=== PATIENT | female | born 2000 | race Two or more races ===

== ENCOUNTER 2024-08-01 08:35 | Outpatient (RCR) | payer MEDICAID, SELFPAY ==
--- NOTE | 2024-07-04 08:55 | XR_ITS ---
EXAMINATION: US OB biophysical profile ORDERING PROVIDER: Shantel Lopez CNM HISTORY: BIWEEKLY NST WEEKLY NST/BPP; CHOLESTASIS TECHNIQUE: Multiple transabdominal sonographic images were obtained by histotechnologist supervisor and submitted for interpretation. COMPARISON: None. FINDINGS: FETUS: See. PRESENTATION: Cephalic. HEART MOTION: 145 beats/min. AMNIOTIC FLUID INDEX: 11.4 cm BREATHING MOVEMENT: 2 . GROSS BODY MOVEMENT: 2 . TONE: 2 . QUALITATIVE AMNIOTIC FLUID VOLUME: 2 TOTAL BIOPHYSICAL PROFILE: 8 of 8 . IMPRESSION: Single live intrauterine gestation with biophysical profile 8 of 8.
[2024-07-04 09:58] VITALS: BP 119/72; PULSE 95; RESP 16; TEMP 36.8
[2024-07-08 09:35] VITALS: BP 132/69; PULSE 114; RESP 16; TEMP 36.7
--- NOTE | 2024-07-11 08:40 | XR_ITS ---
Examination: Biophysical profile, ultrasound Date and time of exam: July 11, 2024 0852 hours INDICATIONS: Diagnosis cholestasis of Technique: Multiple transabdominal sonographic images of the pelvis abdomen obtained. Attention is directed to the breathing movement, gross body movement, amniotic fluid volume and tone. Findings: Amniotic fluid index 13.0 cm Total biophysical profile is 8 of 8. breathing movement is 2. Gross body movement is 2. tone is 2. Qualitative amniotic fluid volume is 2 Impression: Biophysical profile is 8 of 8.
[2024-07-11 09:28] VITALS: BP 121/68; PULSE 99; RESP 16; TEMP 36.8
[2024-07-15 09:06] VITALS: BP 122/67; PULSE 96; RESP 16; TEMP 36.7
--- NOTE | 2024-07-18 08:49 | XR_ITS ---
Examination: Biophysical profile, ultrasound Date and time of exam: July 18, 2024 0858 hours INDICATIONS: Diagnosis cholestasis of Technique: Multiple transabdominal sonographic images of the pelvis abdomen obtained. Attention is directed to the breathing movement, gross body movement, amniotic fluid volume and tone. Findings: Amniotic fluid index 5.1 cm Total biophysical profile is 8 of 8. breathing movement is 2. Gross body movement is 2. tone is 2. Qualitative amniotic fluid volume is 2 Impression: Biophysical profile is 8 of 8.
[2024-07-18 09:14] VITALS: BP 128/68; PULSE 111; RESP 16; TEMP 36.7
[2024-07-22 10:06] VITALS: BP 125/82; PULSE 104; RESP 16; TEMP 36.7
--- NOTE | 2024-08-01 08:45 | XR_ITS ---
Examination: Biophysical profile, ultrasound Date and time of exam: August 01, 2024 0854 hrs. Indications: Diagnosis cholestasis of Technique: Multiple transabdominal sonographic images of the pelvis abdomen obtained. Attention is directed to the breathing movement, gross body movement, amniotic fluid volume and tone. Findings: Amniotic fluid index 5.3 cm Total biophysical profile is 8 of 8. breathing movement is 2. Gross body movement is 2. tone is 2. Qualitative amniotic fluid volume is 2 Impression: Biophysical profile is 8 of 8.
[2024-08-01 09:28] VITALS: BP 137/69; PULSE 101; RESP 16; TEMP 36.7
[2024-08-01 10:32] LABS: Basophils % (Auto) 0 % (0-2.5); Eosinophils # (Auto) 0.1 Thou/mm3 (0.0-0.5); Eosinophils % (Auto) 1 % (0-10); Hematocrit 35.2 % (36.0-46.0); Immature Granulocytes % (Auto) 1 % (0-0); Immature Granulocytes Auto 0.07 Thou/mm3 (0.00-0.00); Lymphocytes # (Auto) 2.3 Thou/mm3 (1.0-4.8); Lymphocytes % (Auto) 21 % (10-50); Mean Corpuscular HGB Conc 34.1 g/dl (31.0-37.0); Mean Corpuscular Hemoglobin 29.4 pg (25.0-35.0); Mean Corpuscular Volume 86 fL (80-100); Monocytes # (Auto) 0.6 Thou/mm3 (0.0-0.8); Monocytes % (Auto) 5 % (0-12); Neutrophils # (Auto) 7.9 Thou/mm3 (1.8-7.7); Neutrophils % (Auto) 72 % (37-80); Nucleated Red Blood Cell % 0 /100 WBC (0); Platelet Count 351 Thou/mm3 (140-440); RDW Standard Deviation 39.7 fL (36.4-46.3); Red Blood Count 4.08 Miln/mm3 (4.00-5.20)
[2024-08-01 10:33] LABS: Collection Type, Urine Clean Catch
[2024-08-01 10:50] LABS: Bacteria,Urine Rare; Bilirubin,Urine Negative (Negative); Blood,Urine Negative (Negative); Clarity,Urine Clear (Clear/Hazy); Color,Urine Yellow (Lt Yel-Yel); Glucose, Urine Negative (Negative); Ketones,Urine Negative (Negative); Leukocyte Esterase,Urine Positive (Negative); Nitrite,Urine Negative (Negative); Protein,Urine Trace (Neg - Trace); RBC,Urine 2 /hpf (0-3); Specific Gravity,Urine 1.033 (1.001-1.035); Squamous Epithelial Cell,Urine 4 /hpf (0-5); Urobilinogen,Urine Negative mg/dL (0.0-1.0); WBC,Urine 6 /hpf (0-5)
[2024-08-01 10:51] LABS: Alanine Aminotransferase 59 U/L (10-49); Albumin, Serum 3.8 gm/dL (3.5-5.0); Albumin/Globulin Ratio 1.6 (1.2-2.2); Alkaline Phosphatase 136 U/L (46-116); Anion Gap 8 (7-16); Aspartate Amino Transferase 27 U/L (0-34); BUN/Creatinine Ratio 14 Ratio (12-20); Bilirubin,Total 0.4 mg/dL (0.3-1.2); Blood Urea Nitrogen 10 mg/dL (9-23); Calcium 9.4 mg/dL (8.3-10.6); Calcium (Corrected) 9.6 mg/dL (8.5-10.1); Chloride 107 mMol/L (98-107); Creatinine (Component) 0.7 mg/dL (0.6-1.3); Globulin 2.4 gm/dL (2.3-3.5); Glucose 116 mg/dL (74-106); LDH (Lactate Dehydrogenase) 163 U/L (120-246); Osmolality,Calculated 279 (275-295); Potassium 4.4 mMol/L (3.4-5.1); Sodium 140 mMol/L (136-145); Total Protein 6.2 gm/dL (5.7-8.2); eGFR > 60 See Note
[2024-08-01 10:54] LABS: Fibrinogen 503 mg/dL (175-375); Partial Thromboplastin Time 26.2 Seconds (22.0-36.0); Prothrombin Time 10.9 Seconds (9.0-12.2)
== END 2024-08-01 23:59 | disposition home or self-care (01) ==
LOC: S4S1 08:35
PROVIDERS: Referring Provider Nurse Practitioner Women's Health; Visit Provider Nurse Practitioner Women's Health
DX: O26.643 Intrahepatic cholestasis of pregnancy, third trimester (principal); K83.1 Obstruction of bile duct; Z3A.36 36 weeks gestation of pregnancy
CPT/HCPCS: 36415; 59025; 76819; 80053; 81001; 83615; 84550; 85025; 85384; 85610; 85730

== ENCOUNTER 2024-08-03 09:38 | Observation (INO) | payer MEDICAID, SELFPAY ==
[2024-08-03] VITALS (8 sets, daily range): BP systolic 104–117; BP diastolic 57–59; PULSE 99–114; RESP 17–97; TEMP 36.6; O2SAT 96–97; BMI 41.4
== END 2024-08-03 10:17 | disposition home or self-care (01) ==
PROVIDERS: Admitting Provider Obstetrics & Gynecology; PCP Family Medicine; Visit Provider Obstetrics & Gynecology
DX: Z34.83 Encounter for supervision of other normal pregnancy, third trimester (principal); Z3A.36 36 weeks gestation of pregnancy
CPT/HCPCS: 59025; 59899

== ENCOUNTER 2024-08-08 02:48 | Inpatient (IN) | payer MEDICAID, SELFPAY ==
[2024-08-08] VITALS (230 sets, daily range): BP systolic 103–135; BP diastolic 57–86; PULSE 73–115; RESP 16–100; TEMP 36.6–37.1; O2SAT 74–100; BMI 43.9
--- NOTE | 2024-08-08 03:28 | XR_ITS ---
Examination: Complete OB ultrasound greater than 14 weeks Date and time of exam: August 08, 2024 0402 hrs. Indications: Unknown presentation and unknown weight Findings: Viable intrauterine single fetus with single amniotic sac presentation cephalic Cardiac motion 1:30 BPM Placenta anterior grade 2 Umbilical cord insertion seen Amniotic fluid index 4.9 cm Cervix 3.1 cm Ovaries obscured by bowel gas. Composite estimated gestational age based on BPD, head circumference, abdominal circumference, femur length is 38 weeks 5 days Estimated weight 3561.9 g. Survey of intracranial anatomy, spinal anatomy, abdominal anatomy, four-chamber heart performed with no abnormalities identified. Impression: Viable intrauterine gestation cephalic presentation Estimated weight 3561.9 g.
[2024-08-08] MEDS: RINGERS LACTATED 1000 ML 1,000 ML 100 ML IV ×3 (03:30→23:55)
[2024-08-08 04:14] LABS: Amphetamine/Metham Scrn,Ur OB Negative (Negative); Benzoylecgonine Screen, Ur OB Negative (Negative); Opiate Screen,Urine OB Negative (Negative); THC Screen,Urine OB Negative (Negative)
[2024-08-08 04:15] LABS: Basophils % (Auto) 0 % (0-2.5); Eosinophils # (Auto) 0.1 Thou/mm3 (0.0-0.5); Eosinophils % (Auto) 1 % (0-10); Hematocrit 35.1 % (36.0-46.0); Hemoglobin 12.2 g/dL (12.0-16.0); Immature Granulocytes % (Auto) 1 % (0-0); Immature Granulocytes Auto 0.11 Thou/mm3 (0.00-0.00); Lymphocytes # (Auto) 2.9 Thou/mm3 (1.0-4.8); Lymphocytes % (Auto) 19 % (10-50); Mean Corpuscular HGB Conc 34.8 g/dl (31.0-37.0); Mean Corpuscular Hemoglobin 29.3 pg (25.0-35.0); Mean Corpuscular Volume 84 fL (80-100); Monocytes # (Auto) 1.1 Thou/mm3 (0.0-0.8); Monocytes % (Auto) 7 % (0-12); Neutrophils # (Auto) 10.7 Thou/mm3 (1.8-7.7); Neutrophils % (Auto) 72 % (37-80); Nucleated Red Blood Cell % 0 /100 WBC (0); Platelet Count 368 Thou/mm3 (140-440); RDW Standard Deviation 38.8 fL (36.4-46.3); Red Blood Count 4.17 Miln/mm3 (4.00-5.20); White Blood Count 14.9 Thou/mm3 (3.6-11.0)
[2024-08-08 04:46] LABS: Syphilis Nonreactive (Nonreactive)
--- NOTE | 2024-08-08 07:52 | ESHP_ITS ---
Documentation for date of: 08/08/24 OB Labor/Induct. HPI History of Present Illness Chief complaint: 24 y/o 37w 1d presents for IOL due to Cholestasis : 2 Para: 0 Term pregnancies: 0 pregnancies: 0 Living children: 0 History of Abortions: Spontaneous and Elective: 0 History of Vaginal deliveries: 0 History of sections: No History of : No LUCI: 08/28/24 Gestational Age (weeks): 37 Gestational Age (days): 1 History of present illness: 24 y/o 37w 1d presents for IOL due to Cholestasis. Cervix is 1.5/70/-3 vertex, EFW 3600g. Pt's pregnacy has been complicated by morbid obesity with BMI of 40 and Cholestasis. Pt has been having biweekly NST/weekly BPP since 32 weeks. GBS is positive and rubella NI. History of Present Dating criteria: based on 1st trimester US only Adequate Care: Yes (As per patient) Ultrasounds: normal 1st trimester US and normal mid trimester US Obstetrical complications: other (Obesity and Cholestasis) Labs Maternal Blood Type: O Pos Labs: Positive: Group Beta Strep, Negative: RPR, Hepatitis B, Rubella Titre, HIV, Chlamydia and Gonorrhea and Unknown: Herpes Type 1, Herpes Type 2 and Covid-19 Review of Systems Review of Systems Systems Reviewed: All systems reviewed, normal except as documented Past Medical History Surgical History SURGICAL: Negative Section Meds Home Medications and Allergies Home Medications ?Medication ?Instructions ?Recorded ?Confirmed ?Type vits no.130-ferrous fum 1 tab PO QDAY PREGNAN CY 08/08/24 08/08/24 History 27 mg iron-folic acid 800 mcg tablet ( Vitamin) ursodiol 300 mg capsule 300 mg PO Q8H CHOLESTASIS 08/08/24 History Allergies Allergy/AdvReac Type Severity Reaction Status Date / Time acetaminophen Allergy Unknown Hives Verified 08/08/24 03:31 OB Exam Physical Exam Vital signs: Temp Pulse Resp BP Pulse Ox O2 Del Method 97.9 F 92 16 119/72 99 Room Air 08/08/24 07:18 08/08/24 07:25 08/08/24 07:18 08/08/24 07:25 08/08/24 07:50 08/08/24 05:36 Constitutional Constitutional: no acute distress Routine HEENT Exam Head: Present normocephalic and atraumatic Eye: Present EOMI, PERRL and normal accommodation ENT: Present mucous membranes moist Routine Neck Exam Neck: Present full ROM Routine Respiratory Exam Respiratory: Absent respiratory distress Routine Cardiovascular Exam Cardiovascular: Present RRR Routine Abdominal Exam Abdominal: Present soft and normoactive bowel sounds Routine Exam External: Present normal urethra appearance; Absent lesions Detailed Labor and Delivery Exam Dilation (cm): 1.5 Effacement (%): 70 Cervix position: posterior station: -3 Consistency: soft Presentation: Vertex Membranes: intact Baseline heart rate: 130 monitor accelerations: 15x15 monitor decelerations: None watermelon inspector variability: Moderate (11-25) Contraction frequency (min): 3-5 Contraction intensity: Moderate Routine Extremities Exam Extremities: Present full ROM Routine Back/Spine/Pelvis Exam Back/Spine: Present full ROM Routine Skin Exam Skin: Present intact, dry and warm Routine Neurological Exam Neurological: Present alert, oriented X3 and CN II-XII intact Routine Psychiatric Exam Psychiatric: Present normal affect and normal thought process OB Results Labs 08/08/24 03:15 Labs: Short CBC 08/08/24 Range/Units 03:15 WBC 14.9 H (3.6-11.0) Thou/mm3 Hgb 12.2 (12.0-16.0) g/dL Hct 35.1 L (36.0-46.0) % Plt Count 368 (140-440) Thou/mm3 OB Assessment & Plan Assessment and Plan (1) Encounter for induction of labor: Status: Acute (2) Cholestasis during in third trimester: Status: Acute (3) GBS carrier: Status: Acute (4) 37 weeks gestation of : Status: Acute (5) Rubella non-immune status, antepartum: Status: Acute Additional Plan Induction method: per misoprostol protocol Plan: induction, anticipate NVD, GBS prophylaxis tx and consult MD westn Additional Plan Comment: Routine Admit orders Continuous EFM Start Ampicillin now Consult anesthesia for an epidural MMR to be given in Dr. Benitez is updated
[2024-08-08] MEDS: Ampicillin Inj 2,000 MG in SODIUM CHLORIDE 0.9% (POP) 100 ML 200 MG IV (10:46)
[2024-08-08] MEDS: MISOPROSTOL 50 mCg TABLET PO ×4 (10:47→23:42)
--- NOTE | 2024-08-08 17:00 | PD.LDPN ---
Documentation for date of: 08/08/24 OB Labor Progress Note Pain Control Pain control: tolerating well Pelvic Exam Dilation (cm): 2 Effacement (%): 70 station: -3 Contractions Monitor mode: External Contraction frequency: 3-5 Contraction intensity: Moderate Status status: Category l Assessment and Plan Assessment: induction ongoing Plan OB labor note: continuous present management Comments: Pt has had 2 doses of cytotec will continue with all 4 doses Reassuring fetus Anticipate
[2024-08-08] MEDS: Ampicillin Inj 1,000 MG in SODIUM CHLORIDE 0.9% (Popper) 50 ML 50 MG IV ×2 (19:19→23:19)
[2024-08-09] VITALS (225 sets, daily range): BP systolic 99–157; BP diastolic 54–102; PULSE 74–181; RESP 16; TEMP 36.6–37.3; O2SAT 73–100
[2024-08-09] MEDS: fentaNYL CIT INJ 50 mCg/ML AMP 2ML 100 MCG IV ×3 (03:07→15:06)
[2024-08-09] MEDS: Ampicillin Inj 1,000 MG in SODIUM CHLORIDE 0.9% (Popper) 50 ML 50 MG IV ×3 (03:17→13:14)
[2024-08-09] MEDS: RINGERS LACTATED 1000 ML 1,000 ML 999 ML IV (06:21)
--- NOTE | 2024-08-09 07:06 | PD.LDPN ---
Documentation for date of: 08/09/24 OB Labor Progress Note Pain Control Pain control: narcotic analgesia and other (Requesting epidural) Pelvic Exam Dilation (cm): 4 Effacement (%): 90 station: +1 Amniotic membrane status: Ruptured (clear) Contractions Monitor mode: External Contraction frequency: 2-3 Contraction duration: 60-90 Contraction phase: Contraction Contraction intensity: Moderate Status status: Category l Assessment and Plan Assessment: induction ongoing Plan OB labor note: begin Pitocin augmentation Comments: Pt SROM overnight and is making progress, slow and study, but expected Pt to get an epidural Start pitoin per protocol if contractions space out Anticipate Dr. Benitez updated
[2024-08-09] MEDS: OXYTOCIN in NS 30 units 30 UNIT/500 ML BAG IV (08:49)
--- NOTE | 2024-08-09 13:19 | PD.LDPN ---
Documentation for date of: 08/09/24 OB Labor Progress Note Pain Control Pain control: epidural Pelvic Exam Dilation (cm): 10 Effacement (%): 100 station: +1 Amniotic membrane status: Ruptured (clear) Contractions Monitor mode: External Contraction frequency: 2-3 Contraction duration: 40-60 Contraction phase: Contraction Contraction intensity: Moderate Status status: Category l Assessment and Plan Assessment: other (2nd stage) Plan OB labor note: continuous present management Comments: Pitocin turned off RN pushing with pt CNM on the unit awaiting delivery
[2024-08-09] MEDS: TRANEXAMIC ACID 1,000 MG IVPB 1,000 MG/100 ML BAG 200 MG IV ×2 (15:07→15:20)
[2024-08-09] MEDS: OXYTOCIN INJ 10 UNIT/ML VIAL IM (15:07)
[2024-08-09] MEDS: OXYTOCIN in NS 20 units 20 UNIT/1,000 ML BAG 125 UNIT IV (15:33)
--- NOTE | 2024-08-09 15:45 | PD.LDDELS ---
Data (See) Data Hx Section: No Maternal Blood Type: O Pos Rubella Titre: Positive RPR: Non-reactive Labs: Positive: Group Beta Strep, Negative: RPR, Hepatitis B, HIV, Chlamydia and Gonorrhea and Unknown: Herpes Type 1 and Herpes Type 2 : 2 Para: 0 Term: 0 : 0 Livin : 1 Delivery Data (See) Labor Data Induction: Yes ROM Date: 08/09/24 ROM Time: 02:38 Rupture Type: SROM Amniotic Fluid: Clear Delivery Data EDC: 08/28/24 EDC calculated by:: ultrasound Labor Onset Stage 1 Date: 08/09/24 Labor Onset Stage 1 Time: 12:29 Labor Onset Stage 2 Date: 08/09/24 Labor Onset Stage 2 Time: 13:10 Delivery Date: 08/09/24 Delivery Time: 14:38 Gestational age (weeks): 37 Gestational age (days): 2 Placenta Delivery Date: 08/09/24 Placenta Delivery Time: 14:56 Delivered by: Shantel Lopez Delivery nurse: [facility] [employer] Attendant at delivery: No Support person(s) at delivery: FOB Other staff at delivery: Nursery Nurse Other staff at delivery: Nursery Nurse Other staff at delivery: Amalia Dhillon Other staff at delivery: Hanh Hernandez Delivery Method Delivery: Vaginal Delivery Type: Spontaneous Presentation: Vertex Position: OA Anesthesia Type Primary Anesthesia: Epidural Delivery Room Medications Intrapartum Medications: Antibiotics Other Intrapartum Medications: No Post Delivery Medications: Antibiotics Post Delivery Medications N/A: Yes Placenta Placenta Delivery: Spontaneous Placenta Cultures Obtained: No Placenta Sent for Examination: No Cord Sample: Cord Blood Obtained Episiotomy Episiotomy: None Lacerations #1: Perineal: 1st degree Perineal repair Sutures used for repair: 3.0 Vicryl (CT) EBL Estimated blood loss (ml): 800 Umbilical Cord Umbilical Vessels: 3 Nuchal Cord: None Body Cord: None Additional Procedures Pt pushed for about an 1.5 hours and had an of a viable male infant. Infant's anterior shoulder delivered with gentle downward traction, subsequent delivery of the posterior shoulder and the body without complications. placed on mother's abdomen. Vigorous cry upon delivery. Cord was clamped then cut by FOB. Cord blood obtained. 3-vessel cord noted. Placenta expelled spontaneously and intact. Pt sustained 1st deg perineal laceration, repaired using a 3.[address] Pt has significant about of bleeding . Pit IM given, TXA x2 given, methergine x1 given. IV pitocin x2 given. Manual removal of clots from the uterus with a vigorous fundal massage. After 800 EBL finally bleeding stopped. Sponge and needle count correct. Pt will be on Ancef 2g Q8 for 24 hours. Mother and baby both stable, skin to skin and bonding in LDR. Data (See) Data Infant Gender: Male Identification Band Number: [id number] Infant Weight Grams: 3670 1 Minute Total: 9 5 Minute Total: 9
[2024-08-09] MEDS: IBUPROFEN TAB 400 MG TABLET 800 MG PO (16:32)
[2024-08-09] MEDS: ceFAZolin/D5W 2 GM IV 2 GM/100 ML BAG IV (16:35)
[2024-08-09 20:43] LABS: Basophils # (Auto) 0.1 Thou/mm3 (0.0-0.2); Basophils % (Auto) 0 % (0-2.5); Eosinophils % (Auto) 0 % (0-10); Hematocrit 29.3 % (36.0-46.0); Hemoglobin 10.3 g/dL (12.0-16.0); Immature Granulocytes % (Auto) 1 % (0-0); Immature Granulocytes Auto 0.23 Thou/mm3 (0.00-0.00); Lymphocytes # (Auto) 2.4 Thou/mm3 (1.0-4.8); Lymphocytes % (Auto) 8 % (10-50); Mean Corpuscular HGB Conc 35.2 g/dl (31.0-37.0); Mean Corpuscular Hemoglobin 29.8 pg (25.0-35.0); Mean Corpuscular Volume 85 fL (80-100); Monocytes # (Auto) 1.6 Thou/mm3 (0.0-0.8); Monocytes % (Auto) 5 % (0-12); Neutrophils # (Auto) 24.7 Thou/mm3 (1.8-7.7); Neutrophils % (Auto) 86 % (37-80); Nucleated Red Blood Cell % 0 /100 WBC (0); Platelet Count 302 Thou/mm3 (140-440); RDW Standard Deviation 39.4 fL (36.4-46.3); Red Blood Count 3.46 Miln/mm3 (4.00-5.20); White Blood Count 28.9 Thou/mm3 (3.6-11.0)
[2024-08-09] MEDS: CLINDAMYCIN 900MG IVPB 900 MG in PRE-MIXED 1 BAG 50 MG IV (22:00)
[2024-08-10] MEDS: ceFAZolin/D5W 2 GM IV 2 GM/100 ML BAG IV ×3 (00:06→15:59)
[2024-08-10 00:11] VITALS: BP 104/65; PULSE 92; RESP 17; TEMP 36.7; O2SAT 97
[2024-08-10 01:59] LABS: Basophils % (Auto) 0 % (0-2.5); Eosinophils % (Auto) 0 % (0-10); Hematocrit 26.1 % (36.0-46.0); Hemoglobin 9.3 g/dL (12.0-16.0); Immature Granulocytes % (Auto) 1 % (0-0); Immature Granulocytes Auto 0.17 Thou/mm3 (0.00-0.00); Lymphocytes # (Auto) 3.3 Thou/mm3 (1.0-4.8); Lymphocytes % (Auto) 15 % (10-50); Mean Corpuscular HGB Conc 35.6 g/dl (31.0-37.0); Mean Corpuscular Hemoglobin 30.2 pg (25.0-35.0); Mean Corpuscular Volume 85 fL (80-100); Monocytes # (Auto) 1.6 Thou/mm3 (0.0-0.8); Monocytes % (Auto) 7 % (0-12); Neutrophils # (Auto) 17.5 Thou/mm3 (1.8-7.7); Neutrophils % (Auto) 77 % (37-80); Nucleated Red Blood Cell % 0 /100 WBC (0); Platelet Count 295 Thou/mm3 (140-440); Red Blood Count 3.08 Miln/mm3 (4.00-5.20); White Blood Count 22.6 Thou/mm3 (3.6-11.0)
[2024-08-10 05:06] VITALS: BP 103/68; PULSE 91; RESP 16; TEMP 36.6; O2SAT 97
[2024-08-10] MEDS: CLINDAMYCIN 900MG IVPB 900 MG in PRE-MIXED 1 BAG 50 MG IV ×3 (06:08→22:08)
[2024-08-10 07:35] VITALS: BP 104/68; PULSE 96; RESP 16; TEMP 36.9; O2SAT 96
[2024-08-10] MEDS: DOCUSATE SOD 100 MG CAPSULE PO (07:58)
--- NOTE | 2024-08-10 08:12 | PC.NURSE ---
verified with patient about allergies, she is able to take norco with no problem but with only tylenol she developes hives.
--- NOTE | 2024-08-10 08:26 | PD.LDPPPRG ---
Subjective Subjective Interval history: Patient denies any problem or complaint. She is voiding and ambulating and tolerating a regular diet and passing flatus.. She denies any excessive vaginal bleeding or dizziness or lightheadedness. She denies any chest pain palpitation shortness of breath or lower extremity pain. She is not having any abdominal or pelvic pain. Exam Vital Signs Temp Pulse Resp BP Pulse Ox O2 Del Method 98.4 F 96 16 104/68 96 Room Air 08/10/24 07:35 08/10/24 07:35 08/10/24 07:35 08/10/24 07:35 08/10/24 07:35 08/10/24 07:35 Routine Respiratory Exam Comments: Clear to auscultation bilaterally Routine Cardiovascular Exam Comments: Regular rate and rhythm Routine Abdominal Exam Comments: Fundus is firm and nontender Routine Extremities Exam Comments: Nontender or edema Objective Labs 08/10/24 00:42 Labs: Laboratory Results - last 24 hr 08/09/24 08/10/24 20:23 00:42 WBC 28.9 H D 22.6 H D RBC 3.46 L 3.08 L Hgb 10.3 L 9.3 L Hct 29.3 L 26.1 L MCV 85 85 MCH 29.8 30.2 MCHC 35.2 35.6 RDW Std Deviation 39.4 40.0 Plt Count 302 D 295 Neut % (Auto) 86 H 77 Lymph % (Auto) 8 L 15 [place] % (Auto) 5 7 Eos % (Auto) 0 0 Baso % (Auto) 0 0 Neut # (Auto) 24.7 H 17.5 H Lymph # (Auto) 2.4 3.3 [place] # (Auto) 1.6 H 1.6 H Eos # (Auto) 0.0 0.0 Baso # (Auto) 0.1 0.0 Immature Gran # (Auto) 0.23 H 0.17 H Absolute Nucleated RBC 0.00 0.00 Immature Gran % 1 H 1 H Nucleated RBC % 0 0 Assessment & Plan Problem List (1) Encounter for induction of labor: Status: Acute (2) Cholestasis during in third trimester: Status: Acute (3) GBS carrier: Status: Acute (4) 37 weeks gestation of : Status: Acute (5) Rubella non-immune status, antepartum: Status: Acute Assessment Comment Assessment comment: day #1 Status post spontaneous vaginal delivery complicated by uterine atony with hemorrhage : Responded to uterotonic's and now hemodynamically stable with hemoglobin stable at 9.3 Elevated white blood cell count presumptive chorioamnionitis with subsequent endometritis Will add gentamicin for gram-negative coverage Possible discharge home tomorrow Repeat CBC in a.m. Time Spent With Patient Time: Total time spent is greater than 50% in coordination of care (as documented) at patient's floor/unit and/or counseling patient:
--- NOTE | 2024-08-10 10:16 | PC.SS ---
BLIND CLEANER, Nayeli, met with patient [id number] to do initial assessment due to having a history of anxiety and late to care. COTTON ACREAGE MEASURER introduced herself, role in the agency, reason for visit, and discussed limits of confidentiality. Patient appeared alert and oriented to self, time, place, and situation. Patient appears stated age. Patient made good eye contact. Patient?s attitude appeared pleasant and cooperative. Patient?s behavior appeared ordinary. Patient?s mood appears ordinary. No signs of delusions or hallucinations. This is 24-year-old, , life-partnered female who presented to deliver her son, Zaheer. Patient confirmed her address and phone number. Patient lives in a house with her life-partner and 9-year-old stepdaughter, Elizabeth. Father of the baby, Vasquez Sparks ([phone]) is involved in the care. Patient is independent with all daily activities; she denies any DME use. Patient declined any history or current substance use. Patient declined any involvement with CWS. Patient declined any domestic violence at home. Patient denied any current mental health illness. Patient reported having a history of anxiety from daily life stressors. Patient denied receiving any outpatient MH services. Patient denied any HI, SI, previous suicide attempts or psychiatric admissions. Patient?s mother, Franchesca will remain at home with her to assist her. SW provided psychoeducation regarding baby blues and Post- Depression, as well as counseling groups at [facility]. SW provided community resources: Warm Line, community resources, and Crisis Line.
[2024-08-10 11:46] VITALS: BP 108/75; PULSE 98; RESP 17; TEMP 36.6; O2SAT 95
--- NOTE | 2024-08-10 13:56 | ESDS_ITS ---
DS: Providers Provider Date of admission: 08/08/24 02:48 Primary care physician: Physician No Primary/Family Admitting Provider: Rex Ramirez MD Attending Provider on Admission: Quirino Goodrich MD Consults: 08/09/24 15:33 Referral Routine Comment: Attending Provider on DC: Quirino Goodrich MD Discharging Provider: Quirino Goodrich MD DS: Diagnosis Discharge Diagnosis (1) Endometritis following delivery: Status: Acute (2) Chorioamnionitis: Status: Acute Problem List Completed Was Problem List Reviewed/Reconciled?: Yes Summary/Hosp Course Brief History: 24 y/o 37w 1d presents for IOL due to Cholestasis. Cervix is 1.5/70/-3 vertex, EFW 3600g. Pt's pregnacy has been complicated by morbid obesity with BMI of 40 and Cholestasis. Pt has been having biweekly NST/weekly BPP since 32 weeks. GBS is positive and rubella NI. Peripartum Data Delivery Method: Normal Vaginal Delivery complications: other (Endometritis) Time Spent with Patient Time attestation: Total time spent providing and/or coordinating discharge services: Exam Vital Signs Temp Pulse Resp BP Pulse Ox O2 Del Method 97.9 F 98 17 108/75 95 Room Air 08/10/24 11:46 08/10/24 11:46 08/10/24 11:46 08/10/24 11:46 08/10/24 11:46 08/10/24 11:46 Discharge Plan Plan Patient Disposition: HOME (Self Care) Patient condition on transfer: Stable Prescriptions/Referrals Prescriptions/Med Rec: New docusate sodium [Colace] 100 mg capsule 100 mg PO BID Qty: 60 0RF ibuprofen 600 mg tablet 600 mg PO Q6H PRN (Reason: pain) Qty: 60 0RF lanolin 50 % ointment 1 applic topical TID PRN (Reason: skin irritation) Qty: 15 0RF amoxicillin-pot clavulanate 875-125 mg tablet 1 tab PO Q12H Qty: 10 0RF Continued Vitamin 27 mg iron- 800 mcg tablet 1 tab PO QDAY Patient Comments: TAKE 1 TABLET BY MOUTH ONCE DAILY Discontinued ursodiol 300 mg capsule 300 mg PO Q8H Patient Comments: TAKE 1 CAPSULE BY MOUTH THREE TIMES DAILY Referrals: No Primary/Family,Physician [Primary Care Provider] - Patient/Caregiver Discharge Instructions Meds to Beds: No Discharge Activity: activity as tolerated Other Discharge Activity Instructions:: Follow-up with Shantel Lopez CNM in 3 weeks Education Materials: After a Vaginal , Breastfeed Holds, : Caring for Yourself Print Language: Vincentian Stand Alone Forms: Lillian Award Info., Patient Portal Info Letter Vaccines Vaccines Given During Stay: MMR Planned Discharge Date 08/11/24 (2) Chorioamnionitis Qualifiers: Fetus number: single or unspecified fetus
[2024-08-10 15:44] VITALS: BP 108/73; PULSE 97; RESP 18; TEMP 37
[2024-08-10 21:00] VITALS: BP 110/74; PULSE 96; RESP 18; TEMP 36.6; O2SAT 99
[2024-08-11] VITALS: BP 112/77; PULSE 97; RESP 19; TEMP 36.8; O2SAT 97
[2024-08-11] MEDS: ceFAZolin/D5W 2 GM IV 2 GM/100 ML BAG IV ×2 (00:15→08:12)
[2024-08-11 04:00] VITALS: BP 118/79; PULSE 95; RESP 18; TEMP 36.9; O2SAT 98
[2024-08-11] MEDS: CLINDAMYCIN 900MG IVPB 900 MG in PRE-MIXED 1 BAG 50 MG IV (06:04)
[2024-08-11 06:17] LABS: Basophils % (Auto) 0 % (0-2.5); Eosinophils # (Auto) 0.2 Thou/mm3 (0.0-0.5); Eosinophils % (Auto) 1 % (0-10); Hematocrit 25.8 % (36.0-46.0); Immature Granulocytes % (Auto) 1 % (0-0); Immature Granulocytes Auto 0.17 Thou/mm3 (0.00-0.00); Lymphocytes # (Auto) 2.8 Thou/mm3 (1.0-4.8); Lymphocytes % (Auto) 20 % (10-50); Mean Corpuscular HGB Conc 34.1 g/dl (31.0-37.0); Mean Corpuscular Hemoglobin 29.4 pg (25.0-35.0); Mean Corpuscular Volume 86 fL (80-100); Monocytes % (Auto) 7 % (0-12); Neutrophils # (Auto) 9.9 Thou/mm3 (1.8-7.7); Neutrophils % (Auto) 70 % (37-80); Nucleated Red Blood Cell % 0 /100 WBC (0); Platelet Count 306 Thou/mm3 (140-440); RDW Standard Deviation 41.2 fL (36.4-46.3); Red Blood Count 2.99 Miln/mm3 (4.00-5.20); White Blood Count 14.2 Thou/mm3 (3.6-11.0)
[2024-08-11 06:18] LABS: Hemoglobin 8.8 g/dL (12.0-16.0)
[2024-08-11] MEDS: DOCUSATE SOD 100 MG CAPSULE PO (08:12)
[2024-08-11 08:15] VITALS: BP 117/83; PULSE 88; RESP 20; TEMP 36.6; O2SAT 99
--- NOTE | 2024-08-11 09:48 | ESPR_ITS ---
RE: DWAYNE MANUEL : 2000 DATE OF SERVICE: 08/11/2024 S: day #2, the patient denies any problem or complaints. She is voiding. She is ambulating. She is tolerating regular diet. She is fasting flatus. She denies any excessive vaginal bleeding. She denies any dizziness or lightheadedness. She denies any chest pain, palpitations, shortness of breath, or lower extremity pain. O: VITAL SIGNS: Blood pressure is 118/79, heart rate 95, respirations 18, temperature 98.4, and pulse oximetry is 98% on room air. LUNGS: Clear to auscultation bilaterally. HEART: Regular rate and rhythm. ABDOMEN: Fundus is firm, nontender. EXTREMITIES: Nontender. LABORATORY DATA: White blood cell count is 14.2, hemoglobin is 8.8. A: 1. day 2, status post spontaneous vaginal delivery. 2. Chorioamnionitis with presumptive endometritis. P: Discharge home with Augmentin. Followup in the office in 6 weeks. Discharge instructions given. DT: 08:57:37 TT: 09:46:00 Ref: [id number] - TID: [id number]
== END 2024-08-11 14:15 | disposition home or self-care (01) | DRG 560 ==
LOC: S4SX 08-09 09:49 → S4NX 08-09 18:33
PROVIDERS: Nurse Practitioner Women's Health; Admitting Provider Student in an Organized Health Care Education/Training Program; Visit Provider Specialist
DX: O26.643 Intrahepatic cholestasis of pregnancy, third trimester (principal); E78.79 Other disorders of bile acid and cholesterol metabolism; K76.89 Other specified diseases of liver; Z37.0 Single live birth; Z3A.37 37 weeks gestation of pregnancy; E66.01 Morbid (severe) obesity due to excess calories; O99.214 Obesity complicating childbirth; O99.824 Streptococcus B carrier state complicating childbirth; O70.0 First degree perineal laceration during delivery; O72.1 Other immediate postpartum hemorrhage; Z23 Encounter for immunization; O41.1230 Chorioamnionitis, third trimester, not applicable or unspecified; N71.9 Inflammatory disease of uterus, unspecified
CPT/HCPCS: 36415; 76805; 80170; 80307; 85025; 86780; 86850; 86900; 86901; J0290; J0689; J1580; J2590; J2795; J3010; J3490; J7050; J7120; S0077; A9270; J0736